=== PATIENT | male | born 1965 | race Caucasian/White ===

== ENCOUNTER → 2018-03-02 07:41 | Outpatient (CLI) | payer SELFPAY ==
--- NOTE | 2018-03-02 | DI.MRI.S_ITS ---
PROCEDURE: MR SHOULDER LT WO CON INDICATIONS: LEFT SHOULDER PAIN TECHNIQUE: Noncontrast oblique coronal T2 fast spin echo with fat saturation, oblique sagittal T1 spin echo and T2 fast spin echo with fat saturation, axial T1 spin echo and T2 fast spin echo with fat saturation through the shoulder. COMPARISON: None. FINDINGS: Image quality: Excellent. Rotator cuff: Large full-thickness tear involving the supraspinatus and infraspinatus tendons. This measures approximately 4.1 cm in the AP dimension as seen on sagittal image 16 series 10. This measures at least 2.3 cm in the transverse/longitudinal dimension as seen on coronal image 13 series 8. There is also edema/ T2 hyperintensity extending into the musculotendinous junction of the supraspinatus and infraspinatus tendons. There is diffuse supraspinatus and infraspinatus muscle edema. Joint effusion There is minor appears grossly intact. The subscapularis tendon appears intact. There is atrophy of the supraspinatus and infraspinatus muscles. Bones and bursae: No bone marrow contusions or fractures. Moderate glenohumeral and acromioclavicular joint degeneration. Incidentally noted os acromiale. Capsule and soft tissues: No discrete fluid signal intensity seen within the labrum to suggest tear. There is circumferential probably chronic fraying. The long head of the biceps tendon demonstrates normal location and morphology. The rotator interval appears normal, without fibrosis. The coracohumeral ligament is normal in thickness. IMPRESSION: Large full-thickness tear involving the supraspinatus and infraspinatus tendons, with additional edema extending to the musculotendinous junctions as well as to the muscle bellies. Atrophy of the supraspinatus and infraspinatus muscles. Moderate glenohumeral and acromioclavicular joint degeneration. Incidentally noted os acromiale. Circumferential fraying of the labrum probably chronic. Joint effusion. Dictated by: Yobany Gaitan M.D. on 03/02/2018 at 9:38 Approved by: Yobany Gaitan M.D. on 03/02/2018 at 9:44
== END ==
PROVIDERS: PCP Family Medicine; Visit Provider Family Medicine
DX: M25.512 Pain in left shoulder (principal); M75.122 Complete rotator cuff tear or rupture of left shoulder, not specified as traumatic; M62.512 Muscle wasting and atrophy, not elsewhere classified, left shoulder; M19.012 Primary osteoarthritis, left shoulder; M25.412 Effusion, left shoulder
CPT/HCPCS: 73221

== ENCOUNTER → 2021-05-05 08:52 | Outpatient (CLI) | payer OTHER, MEDICAID, SELFPAY ==
[2021-05-05 10:08] LABS: Alanine Aminotransferase 23 IU/L (<50); Albumin 4.2 g/dL (3.5-5.0); Albumin Globulin Ratio 1.7 (1.0-2.8); Alkaline Phosphatase 57 U/L (38-126); Aspartate Aminotransferase 25 IU/L (17-59); BUN Creatinine Ratio 20.5 (6-22); Bilirubin Total 0.9 mg/dL (0.2-1.3); Blood Urea Nitrogen 18 mg/dL (9-20); Calcium 9.2 mg/dL (8.4-10.2); Carbon Dioxide 28 mmol/L (22-32); Chloride 105 mmol/L (98-107); Cholesterol 189 mg/dL (140-199); Estimated Glomerular Filt Rate > 60.0 mL/min (>60); Globulin 2.5 g/dL (1.7-4.1); Glucose 90 mg/dL (70-100); HDL Cholesterol 27 mg/dL (40-60); HEMOLYSIS < 15 (0-50); LDL Cholesterol Calculated 123 mg/dL (<100); Potassium 4.2 mmol/L (3.4-5.1); Sodium 141 mmol/L (137-145); Total Protein 6.7 g/dL (6.3-8.2); Triglycerides 193 mg/dL (35-150)
== END ==
PROVIDERS: PCP Internal Medicine; Referring Provider Internal Medicine; Visit Provider Internal Medicine
DX: Z00.00 Encounter for general adult medical examination without abnormal findings (principal); Z13.220 Encounter for screening for lipoid disorders; Z13.6 Encounter for screening for cardiovascular disorders
CPT/HCPCS: 36415; 80053; 80061

== ENCOUNTER → 2021-06-01 08:50 | Outpatient (CLI) | payer OTHER, MEDICAID, SELFPAY ==
[2021-06-02 08:13] LABS: Fecal Immunochemical Test Negative (Negative)
== END ==
PROVIDERS: PCP Internal Medicine; Referring Provider Internal Medicine; Visit Provider Internal Medicine
DX: Z12.11 Encounter for screening for malignant neoplasm of colon (principal)
CPT/HCPCS: 82274